=== PATIENT | male | born 1970 | race Caucasian/White ===

== ENCOUNTER 2019-01-28 21:15 | Emergency (ER) | payer BC, OTHER ==
[~2019-01-28] VITALS: Ht 188 cm; Wt 91.6 kg
[~2019-01-28 21:15] MED LIST: PRISTIQ ER50 MG PO; VITAMIN B12 PO; VITAMIN C PO; WELLBUTRIN SR150 MG PO
[2019-01-28] MEDS ORDERED: TETANUS/DIPHTHERIA TOX ADULT 0.5 ML SYR ONE (21:33)
[2019-01-28] MEDS ORDERED: TETANUS/DIPHTHERIA TOX ADULT 0.5 ML SYR IM NR (22:00)
[2019-01-28] MEDS ORDERED: LIDOCAINE HCL 2% JELLY 5 ML TUBE TOP ONE (22:00)
== END 2019-01-28 22:41 | disposition home or self-care (01) ==
LOC: ER 21:15
DX: S61.311A Laceration without foreign body of left index finger with damage to nail, initial encounter (principal); W26.0XXA Contact with knife, initial encounter; Y93.G3 Activity, cooking and baking; Y92.000 Kitchen of unspecified non-institutional (private) residence as the place of occurrence of the external cause
CPT/HCPCS: 12001; 90471; 90714; 99283; J2001